=== PATIENT | female | born 1985 | race Caucasian/White ===

== ENCOUNTER 2016-09-23 20:35 | Emergency (ER) ==
[2016-09-23] MEDS ORDERED: COMPAZINE IV ONE (21:18)
[2016-09-23] MEDS ORDERED: TORADOL IV ONE (21:19)
[2016-09-23] MEDS ORDERED: STADOL IV ONE (21:19)
[2016-09-23] MEDS ORDERED: BENADRYL IV ONE (21:22)
--- NOTE | 2016-09-23 21:23 | PROVIDER DOCUMENTATION ---
HPI-Headache - General Source: patient - History of Present Illness-Headache Headache Location: reports: temporal Quality of Pain: reports: aching Severity: reports: severe Onset/Duration: reports: 5 days ago Timing: reports: still present Headache History: reports: history of migraines Any recent trauma/injury?: reports: none Headache severity at the maximum: worst of life Preceding Symptoms: reports: none Headache Exacerbated by:: reports: light, noise Associated Symptoms: reports: nausea, vomiting. denies: short of breath, fever/ chills, weakness Similar Symptoms Previously?: Yes Recently seen or treated by another doctor?: No <Pal Jj - Last Filed: 09/23/16 22:08> <Fady Rodriguez - Last Filed: 09/23/16 22:12> - General Chief Complaint: Headache Stated Complaint: MIGRAINE Time Seen by Provider: 09/23/16 21:10 Allergies/Adverse Reactions: Patient Allergies Allergy/AdvReac Type Severity Reaction Status Date / Time dihydroergotamine mesylate * Allergy HEADACHE Verified 06/03/16 00:29 [From Dhe] sumatriptan [From Imitrex] Allergy HIVES Verified 06/03/16 00:29 sumatriptan succinate * Allergy HIVES Verified 06/03/16 00:29 [From Imitrex] Home Medications: Home Medication List Medication Instructions Recorded Confirmed Last Taken Type Diphenhydramine [Benadryl] 25 mg IV NOW #1 vial 09/23/16 Unknown Rx Promethazine [Phenergan] 1 - 2 tab PO Q6H PRN PRN #18 tablet 09/23/16 Unknown Rx Rizatriptan Benzoate [Maxalt] 5 mg PO PRN PRN 09/23/16 09/23/16 Unknown History - History of Present Illness-Headache Nature of Presenting Problem: 30 y/o F with a migraine for 5 days with N/V, light and sound sensitive on the right side of head. Pt states this is her worst one in several months. Pt said she did suffer from sinus congestion and cough but was over it 1 day prior to headache. Pt state Topamax and neurotin has not helped her. (Pal Jj ) Review of Systems - Adult - REVIEW OF SYSTEMS - ADULT Constitutional: denies: chills, fever Eyes: reports: no symptoms reported Ears, Nose, Mouth & Throat: reports: no symptoms reported Cardiovascular: reports: no symptoms reported Respiratory: reports: no symptoms reported Gastrointestinal: reports: no symptoms reported Genitourinary: reports: no symptoms reported Musculoskeletal: reports: no symptoms reported Integumentary: reports: no symptoms reported Neurological: reports: dizziness/vertigo, headache/migraines. denies: loss of balance, numbness, slurred speech, syncope Psychiatric: reports: no symptoms reported Endocrine: reports: no symptoms reported Hematologic/Lymphatic: reports: no symptoms reported Allergic/Immunologic: reports: no symptoms reported All Other Systems: Reviewed and Negative <Pal Jj - Last Filed: 09/23/16 22:08> Past History - Adult - PAST MEDICAL HISTORY-ADULT Review of Records: reports: Old Records Reviewed, Nursing Assessment Review, Medications Reviewed Major Childhood Illnesses: reports: denies history Cardiovascular: reports: denies history Respiratory: reports: denies history Gastrointestinal: reports: denies history Obstetrical/Gynecological: reports: denies history Genitourinary: reports: denies history Musculoskeletal: reports: denies history Neurological: reports: headaches/migraines Endocrine/Immune: reports: denies history Other Conditions: reports: denies history - PRIOR SURGERIES/PROCEDURES Surgical/Procedure History: reports: cholecystectomy, , tonsillectomy, orthopedic (extremity), breast - IMMUNIZATION STATUS Childhood Immunizations: See Nurse Assessment Flu Vaccine: See Nurse Assessment - FAMILY HISTORY Family History: reviewed, not pertinent - SOCIAL HISTORY Smoking: cigarettes Living Situation: family <Pal Jj Last Filed: 09/23/16 22:08> Physical Exam- Neurological - Physical Exam-Neuro Initial Vital Signs Reviewed: Yes General Appearance: appears well, alert, no apparent distress Eye Exam: bilateral eye: normal inspection, PERRL, EOMI HENMT: moist mucous membranes, normal ENT inspection, TMs normal, pharynx normal Head Injury: no evidence of injury, active bleeding Neck: non-tender, full range of motion, supple, normal inspection Respiratory: normal breath sounds, no pleuratic chest pain, no respiratory distress, no accessory muscle use Cardiovascular: normal peripheral pulses, tachycardia Abdominal Exam: normal bowel sounds, non tender, soft Extremity: non-tender, normal gait, normal inspection director of scientific research Exam: normal hearing, normal speech, PERRL Motor/Sensory: no motor deficit, no sensory deficit Neurologic: grossly normal, no motor/sensory deficits Integumentary: normal color, normal turgor, warm/dry Psych/Mental Status: normal mood/affect, normal thought content, normal thought process, oriented x 3 <Pal Jj - Last Filed: 09/23/16 22:08> Progress <Pal Jj - Last Filed: 09/23/16 22:08> <Fady Rodriguez - Last Filed: 09/23/16 22:12> - PLAN OF CARE/RESULTS Progress/Plan/Lab Results: Orders Category Date Time Status Butorphanol [Stadol] Med 09/23/16 21:19 Discontinued 2 mg IV NOW ONE Diphenhydramine [Benadryl] Med 09/23/16 21:22 Discontinued 25 mg IV NOW ONE Ketorolac [Toradol] Med 09/23/16 21:19 Discontinued 30 mg IV NOW ONE Prochlorperazine [Compazine] Med 09/23/16 21:18 Discontinued 10 mg IV NOW ONE Vital Signs Temp Pulse Resp BP Pulse Ox 09/23/16 22:01 98.1 F 90 18 118/84 100 09/23/16 20:55 98 F 116 H 18 129/90 98 dihydroergotamine mesylate * [From Dhe] Allergy (Verified 06/03/16 00:29) HEADACHE sumatriptan [From Imitrex] Allergy (Verified 06/03/16 00:29) HIVES sumatriptan succinate * [From Imitrex] Allergy (Verified 06/03/16 00:29) HIVES Diphenhydramine [Benadryl] 25 mg IV NOW #1 vial 09/23/16 Promethazine [Phenergan] 1 - 2 tab PO Q6H PRN PRN #18 tablet 09/23/16 Rizatriptan Benzoate [Maxalt] 5 mg PO PRN PRN 09/23/16 (Pal Jj) Departure <Pal Jj - Last Filed: 09/23/16 22:08> - Departure Time of Disposition Order: 22:00 Certified Medical Emergency: Emergent <Fady Rodriguez - Last Filed: 09/23/16 22:12> - Departure DIAGNOSIS: Migraine, intractable Qualifiers: Migraine type: without aura Status migrainosus presence: with status migrainosus Qualified Code(s): G43.011 - Migraine without aura, intractable, with status migrainosus Disposition: HOME 01 Condition: Fair Additional Instructions: FOLLOW UP WITH NEUROLOGIST ED Follow Up Instructions: You have been treated by a care provider in the Emergency Department. These instructions are being provided to you so you can have an understanding of how to care for yourself upon discharge. Upon discharge from the Emergency Department, you are responsible for making arrangements for follow-up care by a physician of your choice. Take all prescribed medications as directed. Return to the Emergency Department immediately for any new or worsening symptoms. You may call the Physician Referral phone number at [phone] to obtain a list of Physicians who are taking new patients. Prescriptions: Diphenhydramine [Benadryl] 25 mg IV NOW #1 vial Promethazine [Phenergan] 1 - 2 tab PO Q6H PRN PRN #18 tablet PRN Reason: Vomiting Referrals: Jef Mancia MD [Primary Care Provider] - Forms: Return to School/Parent Work Instructions: Diphenhydramine injection, Promethazine tablets Attestation - Scribe Verification/Attestation Scribe:: Pal Jj Acting as Scribe for:: Fady Rodriguez Scribe documention review:: This chart was documented by a scribe and accurately reflects the service the provider performed and the decisions made by the provider. <Pal Jj - Last Filed: 09/23/16 22:08> Physician Attestation
[2016-09-23 22:02] VITALS: BP 118/84
== END 2016-09-23 22:22 | disposition home or self-care (01) ==
LOC: P.ED 20:35
DX: G43.011 Migraine without aura, intractable, with status migrainosus (principal); R51 Headache; R11.2 Nausea with vomiting, unspecified; R42 Dizziness and giddiness; F17.210 Nicotine dependence, cigarettes, uncomplicated
CPT/HCPCS: 96374; 96375; J0595; J0780; J1200; J1885